=== PATIENT | male | born 1960 | race Caucasian/White ===

== ENCOUNTER 2019-01-17 16:33 | Emergency (ER) | payer OTHER ==
[~2019-01-17] VITALS: Ht 175.3 cm; Wt 92.7 kg
[2019-01-17 16:36] VITALS: Ht 175.3 cm; Wt 92.7 kg
[2019-01-17] MEDS ORDERED: IBUPROFEN 600 MG TAB PO ONE (17:30)
[2019-01-17] MEDS ORDERED: IBUP-1542 PO (18:09)
[2019-01-17] MEDS ORDERED: TRAM50TA2 PO (18:10)
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
[2019-01-17 18:30] VITALS: BP 148/74; PULSE 96; RESP 18
== END 2019-01-17 18:30 | disposition home or self-care (01) ==
LOC: FTE 16:33
DX: S13.9XXA Sprain of joints and ligaments of unspecified parts of neck, initial encounter (principal); V49.50XA Passenger injured in collision with unspecified motor vehicles in traffic accident, initial encounter; Y92.9 Unspecified place or not applicable
CPT/HCPCS: 72040; Z7502; Z7610